=== PATIENT | male | born 1975 | race American Indian/Alaskan Native ===

== ENCOUNTER 2018-02-24 21:43 | Emergency (ER) | payer BC ==
[2018-02-24 21:43] VITALS: BMI 22.4
[2018-02-24 22:11] VITALS: RESP 18
--- NOTE | 2018-02-24 22:15 | ED PDOC ---
Arrival/HPI - General Chief Complaint: High Blood Sugar Time Seen by Provider: 02/24/18 21:44 Historian: Patient - History of Present Illness Narrative History of Present Illness (Text): 02/24/18 22:16 Shawn Westbrook is a 42 year old male, whose past medical history includes IDDM on insulin pump, who presents to the ED complaining of high blood sugar and diarrhea. Patient reports he was seen at his PMD's office earlier today for nausea, vomiting, and diarrhea since yesterday and given an anti-pyretic. Patient reports he has had 1 episode of vomiting and 1 episode of diarrhea since seeing his PMD earlier today. Patient notes his blood sugars have been elevated today and came in for further evaluation. Fingerstick on arrival to ED was 295. Patient denies any fever, chills, abdominal pain, urinary symptoms, back pain, neck pain, headache, dizziness, or any other complaints. Symptom Onset: Gradual Symptom Course: Unchanged Activities at Onset: Light Context: Home Past Medical History - Provider Review Nursing Documentation Reviewed: Yes - Infectious Disease Hx of Infectious Diseases: None - Tetanus Immunization Tetanus Immunization: Unknown - Cardiac Hx Cardiac Disorders: Yes Hx Hypertension: Yes - Pulmonary Hx Respiratory Disorders: No - Neurological Hx Neurological Disorder: No - HEENT Hx HEENT Disorder: No - Renal Hx Renal Disorder: No - Endocrine/Metabolic Hx Endocrine Disorders: Yes Hx Diabetes Mellitus Type 1: Yes Hx Systemic Lupus Erythematosus: Yes - Hematological/Oncological Hx Blood Disorders: No - Integumentary Hx Dermatological Disorder: No - Musculoskeletal/Rheumatological Hx Musculoskeletal Disorders: No Hx Falls: No - Gastrointestinal Hx Gastrointestinal Disorders: No - Psychiatric Hx Depression: Yes Hx Substance Use: (denies) - Past Surgical History Past Surgical History: Non-Contributing Family/Social History - Physician Review Nursing Documentation Reviewed: Yes Family/Social History: Unknown Family HX Smoking Status: Current Some Days Smoker Hx Alcohol Use: Yes (social wine) Hx Substance Use: (denies) Allergies/Home Meds Allergies/Adverse Reactions: Allergies No Known Allergies Allergy (Verified 07/07/12 09:06) Home Medications: Home Meds Medication Instructions Recorded Confirmed Enalapril Maleate [Enalapril] 20 mg PO DAILY 07/07/12 02/25/18 Fenofibric Acid [Trilipix] 135 mg PO DAILY 07/07/12 02/25/18 Insulin Aspart, Recombinant 10 units SC BID 07/08/12 02/25/18 [Novolog] Insulin Detemir [Levemir] 10 unit SC QPM 07/08/12 02/25/18 Levemir 25 units SC QAM 07/08/12 02/25/18 Review of Systems - Physician Review All systems were reviewed & negative as marked: Yes - Review of Systems Constitutional: Normal. absent: Fevers Eyes: Normal ENT: Normal Respiratory: Normal. absent: SOB, Cough Cardiovascular: Normal. absent: Chest Pain Gastrointestinal: Diarrhea, Nausea, Vomiting Genitourinary Male: Normal. absent: Dysuria, Frequency, Hematuria, Urinary Output Changes Musculoskeletal: Normal. absent: Back Pain, Neck Pain Skin: Normal. absent: Rash Neurological: Normal. absent: Headache, Dizziness Endocrine: Other (+high blood sugar) Hemo/Lymphatic: Normal Psychiatric: Normal Physical Exam Vital Signs Reviewed: Yes Vital Signs Pulse Resp BP Pulse Ox 02/24/18 22:06 108 H 18 142/92 H 99 Temperature: Afebrile Blood Pressure: Normal Pulse: Regular Respiratory Rate: Normal Appearance: Positive for: Well-Appearing, Non-Toxic, Comfortable Pain Distress: None Mental Status: Positive for: Alert and Oriented X 3 - Systems Exam Head: Present: Atraumatic, Normocephalic Pupils: Present: PERRL Extroacular Muscles: Present: EOMI Conjunctiva: Present: Normal Mouth: Present: Moist Mucous Membranes Neck: Present: Normal Range of Motion Respiratory/Chest: Present: Clear to Auscultation, Good Air Exchange. No: Respiratory Distress, Accessory Muscle Use Cardiovascular: Present: Regular Rate and Rhythm, Normal S1, S2. No: Murmurs Abdomen: No: Tenderness, Distention, Peritoneal Signs Back: Present: Normal Inspection. No: CVA Tenderness, Midline Tenderness, Paraspinal Tenderness Upper Extremity: Present: Normal Inspection. No: Cyanosis, Edema Lower Extremity: Present: Normal Inspection. No: Edema Neurological: Present: GCS=15, CN II-XII Intact, Speech Normal, Motor Func Grossly Intact, Normal Sensory Function, Normal Cerebellar Funct Skin: Present: Warm, Dry, Normal Color. No: Rashes Psychiatric: Present: Alert, Oriented x 3, Normal Insight, Normal Concentration Medical Decision Making ED Course and Treatment: 02/24/18 22:14 Impression: 42 year old male complaining of nausea, vomiting, diarrhea, and elevated blood sugars. Plan: -- Labs, lipase -- IV fluids -- Reassess and disposition Progress Notes: 02/25/18 02:54 Labs reviewed. On reassessment, pt is awake, alert, and in no acute distress. Discussed results and plan with patient. Patient verbalizes understanding and is agreeable with plan. All questions answered. - Lab Interpretations Lab Results: Lab Results 02/24/18 22:02: POC Glucose (mg/dL) 295 H I have reviewed the lab results: Yes - Scribe Statement The provider has reviewed the documentation as recorded by the Scribe Mae Bowen All medical record entries made by the Scribe were at my direction and personally dictated by me. I have reviewed the chart and agree that the record accurately reflects my personal performance of the history, physical exam, medical decision making, and the department course for this patient. I have also personally directed, reviewed, and agree with the discharge instructions and disposition. Disposition/Present on Arrival - Present on Arrival Any Indicators Present on Arrival: No History of DVT/PE: No History of Uncontrolled Diabetes: Yes Urinary Catheter: Yes (inserted in er) History of Decub. Ulcer: No History Surgical Site Infection Following: None - Disposition Have Diagnosis and Disposition been Completed?: Yes Diagnosis: Gastroenteritis, Diabetes mellitus Disposition: HOME/ ROUTINE Disposition Time: 02:51 Patient Plan: Discharge Patient Problems: Current Active Problems Problem Status Onset Diabetes mellitus Acute Gastroenteritis Acute Condition: GOOD Discharge Instructions (ExitCare): Diabetes Diet , Blood Glucose Monitoring, Gastroenteritis (ED) Additional Instructions: Drink plenty of liquids/[place] diet/follow up with your doctor this week Referrals: Shay Houston MD [Primary Care Provider] - Follow up with primary Forms: [employer] ([place])
[2018-02-24] MEDS ORDERED: Sodium Chloride 0.9% 1,000 ML IV STA (22:20)
[2018-02-24 22:59] LABS: HEMOGLOBIN 13.4 g/dL (14.0-18.0); MEAN CELL VOLUME 91.8 fl (80.0-105.0); MEAN CORPUSCULAR HEMOGLOBIN 30.6 pg (25.0-35.0); MEAN CORPUSCULAR HGB CONC 33.3 g/dl (31.0-37.0); MEAN PLATELET VOLUME 9.6 fl (7.0-11.0); RBC 4.38 10^6/uL (3.5-6.1); RED CELL DISTRIBUTION WIDTH 13.4 % (11.5-14.5); WHITE BLOOD COUNT 5.2 10^3/ul (4.5-11.0)
[2018-02-24 23:19] LABS: ALB/GLOB RATIO 1.2 (1.1-1.8); ALBUMIN 4.7 g/dL (3.0-4.8); ALT/SGPT 71 U/L (7-56); AST/SGOT 99 U/L (17-59); BLOOD UREA NITROGEN 21 mg/dL (7-21); GFR NON-AFRICAN AMERICAN > 60; LIPASE 86 U/L (23-300)
[2018-02-25] MEDS ORDERED: Sodium Chloride 0.9% 1,000 ML IV STA (01:10)
[2018-02-25 02:59] VITALS: BP 127/74; PULSE 82; O2SAT 100
== END 2018-02-25 02:59 | disposition home or self-care (01) ==
LOC: ED 21:43
DX: K52.9 Noninfective gastroenteritis and colitis, unspecified (principal); E10.9 Type 1 diabetes mellitus without complications; Z79.4 Long term (current) use of insulin; I10 Essential (primary) hypertension; F17.210 Nicotine dependence, cigarettes, uncomplicated
CPT/HCPCS: 80053; 82948; 83690; 85027; 96360; 96361; 99284; J7030